=== PATIENT | female | born 1940 | race Two or more races ===

== ENCOUNTER 2018-11-08 15:48 | Inpatient (IN) | payer OTHER, MEDICAID ==
[~2018-11-08] VITALS: Ht 165.1 cm; Wt 64.4 kg
[~2018-11-08 15:48] MED LIST: ABILIFY10 MG ORAL; ASPIR 8181 MG ORAL; ATORVASTATIN CA20 MG ORAL; COMPAZINE10 MG ORAL; DOC-Q-LACE100 M1 ORAL; FLUOXETINE HCL40 MG ORAL; LORAZEPAM2 MG ORAL; METOPROLOL TART25 MG ORAL; NAPROXEN500 M2 ORAL; OMEPRAZOLE40 M1 ORAL
[2018-11-08] MEDS ORDERED: LORAZEPAM0.5 MG ORAL (15:54)
[2018-11-08] MEDS ORDERED: LIPITOR80 MG ORAL (15:54)
[2018-11-08] MEDS ORDERED: LORazepam Inj 2mg/ml 1ml IV ONE (16:00)
[2018-11-08 16:04] VITALS: BP 132/64
--- NOTE | 2018-11-08 16:10 | NUR ---
ED Nurse Note: pt brought in to ER by ambulance from home due to abdominal pain / which started this morning. pt aao x4 and ambulatory with assist. skin clean and intact. pt in gown and on monitoring and evaluation advisor. per pt, she eats 2 raw eggs and have heartburn everytime. she ate 2 raw eggs again today and abdominal pain gets worse. pt denied diarrhea but reported x1 vomit at home.
[2018-11-08 16:23] LABS: BASOPHILS % (AUTO) 2.3 % (0.0-2.0); EOSINOPHILS % (AUTO) 2.1 % (0.0-3.0); HEMATOCRIT 38.6 % (37.0-47.0); HEMOGLOBIN 12.4 G/DL (12.0-16.0); LYMPHOCYTES % (AUTO) 19.2 % (20.0-45.0); MEAN CORPUSCULAR VOLUME 76 FL (80-99); MONOCYTES % (AUTO) 7.1 % (1.0-10.0); NEUTROPHILS % (AUTO) 69.3 % (45.0-75.0); PLATELET COUNT 357 K/UL (150-450); RED CELL DISTRIBUTION WIDTH 18.6 % (11.6-14.8); WHITE BLOOD COUNT 16.5 K/UL (4.8-10.8)
--- NOTE | 2018-11-08 16:30 | Emergency Room Report ---
History of Present Illness General Chief Complaint: Abdominal Pain Source: Patient, EMS Present Illness HPI Patient presents with complaints of chest pain and shortness of breath Patient reports that she was recently at [facility] Since discharge home has been feeling short of breath and midsternal chest pain patient also associated mid epigastric pain Denies any vomiting or diarrhea denies any change with position she does feel more short of breath with any exertion Allergies: Coded Allergies: CODEINE (Unverified Allergy, Unknown, 07/22/15) MORPHINE (Unverified Allergy, Unknown, 07/22/15) Patient History Past Medical History: see triage record Pertinent Family History: none Now: No Reviewed Nursing Documentation: PMH: Agreed; PSxH: Agreed Nursing Documentation-PMH Past Medical History: No History, Except For Hx Cardiac Problems: Yes - HEART ATTACK 2017 Hx Hypertension: Yes Hx Diabetes: Yes Hx Cancer: No Hx Gastrointestinal Problems: Yes - Gastritis Hx Seizures: Yes - Childhood Review of Systems All Other Systems: negative except mentioned in HPI Physical Exam Vital Signs Date Time Temp Pulse Resp B/P (MAP) Pulse Ox O2 Delivery O2 Flow Rate FiO2 11/08/18 15:46 99.0 113 20 128/70 (89) 97 Room Air Sp02 EP Interpretation: reviewed, normal General Appearance: mild distress - Appears uncomfortable Head: normocephalic, atraumatic Eyes: bilateral eye PERRL, bilateral eye EOMI ENT: hearing grossly normal, normal pharynx, TMs + canals normal, uvula midline Neck: full range of motion, supple, no meningismus, no bony tend Respiratory: lungs clear, normal breath sounds, no rhonchi, no respiratory distress, no retraction, no accessory muscle use Cardiovascular #1: normal peripheral pulses, regular rate, rhythm, no edema, no gallop, no JVD, no murmur Gastrointestinal: normal bowel sounds, non tender, soft, no mass, no organomegaly, non-distended, no guarding, no hernia, no pulsatile mass, no rebound Genitourinary: no CVA tenderness Musculoskeletal: normal inspection Neurologic: oriented x3, responsive, gun fertilizer III-XII nml as tested, motor strength/ tone normal, sensory intact Psychiatric: mood/affect normal Skin: normal color, no rash, warm/dry, palpation normal Lymphatic: normal inspection, no adenopathy Medical Decision Making Diagnostic Impression: Primary Impression: ACS (acute coronary syndrome) Additional Impression: CHF (congestive heart failure) ER Course Patient is a fairly complex patient with multiple differential to consideration including but not limited to cardiac cardiopulmonary and vascular emergencies Patient appears to be showing some signs of CHF as well given some of the discomfort Patient has fairly extensive work-up initiated imaging shows congestion as well Patient requiring further inpatient care Labs Test 11/08/18 16:00 11/08/18 16:30 11/08/18 23:00 11/09/18 00:30 White Blood Count 16.5 K/UL (4.8-10.8) 13.1 K/UL (4.8-10.8) Red Blood Count 5.10 M/UL (4.20-5.40) 4.74 M/UL (4.20-5.40) Hemoglobin 12.4 G/DL (12.0-16.0) 11.7 G/DL (12.0-16.0) Hematocrit 38.6 % (37.0-47.0) 35.7 % (37.0-47.0) Mean Corpuscular Volume 76 FL (80-99) 75 FL (80-99) Mean Corpuscular Hemoglobin 24.2 PG (27.0-31.0) 24.6 PG (27.0-31.0) Mean Corpuscular Hemoglobin Concent 32.1 G/DL (32.0-36.0) 32.7 G/DL (32.0-36.0) Red Cell Distribution Width 18.6 % (11.6-14.8) 19.1 % (11.6-14.8) Platelet Count 357 K/UL (150-450) 314 K/UL (150-450) Mean Platelet Volume 6.1 FL (6.5-10.1) 5.7 FL (6.5-10.1) Neutrophils (%) (Auto) 69.3 % (45.0-75.0) 59.4 % (45.0-75.0) Lymphocytes (%) (Auto) 19.2 % (20.0-45.0) 26.2 % (20.0-45.0) Monocytes (%) (Auto) 7.1 % (1.0-10.0) 7.5 % (1.0-10.0) Eosinophils (%) (Auto) 2.1 % (0.0-3.0) 4.4 % (0.0-3.0) Basophils (%) (Auto) 2.3 % (0.0-2.0) 2.6 % (0.0-2.0) Sodium Level 136 MMOL/L (136-145) Potassium Level 4.0 MMOL/L (3.5-5.1) Chloride Level 99 MMOL/L (98-107) Carbon Dioxide Level 22 MMOL/L (21-32) Anion Gap 15 mmol/L (5-15) Blood Urea Nitrogen 13 mg/dL (7-18) Creatinine 0.9 MG/DL (0.55-1.30) Estimat Glomerular Filtration Rate mL/min (>60) Glucose Level 115 MG/DL (74-106) Calcium Level 9.5 MG/DL (8.5-10.1) Total Bilirubin 0.2 MG/DL (0.2-1.0) Aspartate Amino Transf (AST/SGOT) 21 U/L (15-37) Alanine Aminotransferase (ALT/SGPT) 26 U/L (12-78) Alkaline Phosphatase 79 U/L (46-116) Total Creatine Kinase 33 U/L (26-308) Creatine Kinase MB 1.0 NG/ML (0.0-3.6) Creatine Kinase MB Relative Index 3.0 Troponin I 0.000 ng/mL (0.000-0.056) 0.001 ng/mL (0.000-0.056) Pro-B-Type Natriuretic Peptide 1310 pg/mL (0-125) Total Protein 8.0 G/DL (6.4-8.2) Albumin 4.5 G/DL (3.4-5.0) Globulin 3.5 g/dL Albumin/Globulin Ratio 1.3 (1.0-2.7) Lipase 159 U/L (73-393) Urine Opiates Screen Negative (NEGATIVE) Urine Barbiturates Screen Negative (NEGATIVE) Phencyclidine (PCP) Screen Negative (NEGATIVE) Urine Amphetamines Screen Negative (NEGATIVE) Urine Benzodiazepines Screen Negative (NEGATIVE) Urine Cocaine Screen Negative (NEGATIVE) Urine Marijuana (THC) Screen Negative (NEGATIVE) Urine Color Yellow Urine Appearance Clear Urine pH 5 (4.5-8.0) Urine Specific Fosters 1.010 (1.005-1.035) Urine Protein 1+ (NEGATIVE) Urine Glucose (UA) Negative (NEGATIVE) Urine Ketones Negative (NEGATIVE) Urine Blood 1+ (NEGATIVE) Urine Nitrite Negative (NEGATIVE) Urine Bilirubin Negative (NEGATIVE) Urine Urobilinogen Normal MG/DL (0.0-1.0) Urine Leukocyte Esterase 1+ (NEGATIVE) Urine RBC 0-2 /HPF (0 - 2) Urine WBC 0-2 /HPF (0 - 2) Urine Squamous Epithelial Cells Few /LPF (NONE/OCC) Urine Bacteria Occasional /HPF (NONE) Lactic Acid Level 1.30 mmol/L (0.4-2.0) Test 11/09/18 08:35 11/09/18 15:05 11/10/18 07:40 Sodium Level 139 MMOL/L (136-145) 141 MMOL/L (136-145) Potassium Level 4.3 MMOL/L (3.5-5.1) 3.8 MMOL/L (3.5-5.1) Chloride Level 103 MMOL/L (98-107) 107 MMOL/L (98-107) Carbon Dioxide Level 26 MMOL/L (21-32) 23 MMOL/L (21-32) Anion Gap 10 mmol/L (5-15) 11 mmol/L (5-15) Blood Urea Nitrogen 14 mg/dL (7-18) 11 mg/dL (7-18) Creatinine 1.1 MG/DL (0.55-1.30) 1.0 MG/DL (0.55-1.30) Estimat Glomerular Filtration Rate mL/min (>60) mL/min (>60) Glucose Level 125 MG/DL (74-106) 132 MG/DL (74-106) Calcium Level 9.5 MG/DL (8.5-10.1) 8.8 MG/DL (8.5-10.1) Total Bilirubin 0.5 MG/DL (0.2-1.0) Aspartate Amino Transf (AST/SGOT) 25 U/L (15-37) Alanine Aminotransferase (ALT/SGPT) 32 U/L (12-78) Alkaline Phosphatase 88 U/L (46-116) Troponin I 0.000 ng/mL (0.000-0.056) Total Protein 8.0 G/DL (6.4-8.2) Albumin 4.1 G/DL (3.4-5.0) Globulin 3.9 g/dL Albumin/Globulin Ratio 1.1 (1.0-2.7) Stool Occult Blood Negative (NEGATIVE) White Blood Count 9.7 K/UL (4.8-10.8) Red Blood Count 4.81 M/UL (4.20-5.40) Hemoglobin 12.0 G/DL (12.0-16.0) Hematocrit 37.2 % (37.0-47.0) Mean Corpuscular Volume 77 FL (80-99) Mean Corpuscular Hemoglobin 24.9 PG (27.0-31.0) Mean Corpuscular Hemoglobin Concent 32.3 G/DL (32.0-36.0) Red Cell Distribution Width 19.4 % (11.6-14.8) Platelet Count 336 K/UL (150-450) Mean Platelet Volume 6.3 FL (6.5-10.1) Neutrophils (%) (Auto) 62.0 % (45.0-75.0) Lymphocytes (%) (Auto) 22.9 % (20.0-45.0) Monocytes (%) (Auto) 7.9 % (1.0-10.0) Eosinophils (%) (Auto) 5.4 % (0.0-3.0) Basophils (%) (Auto) 1.8 % (0.0-2.0) Prothrombin Time 10.5 SEC (9.30-11.50) Prothromb Time International Ratio 1.0 (0.9-1.1) Activated Partial Thromboplast Time 32 SEC (23-33) Phosphorus Level 4.6 MG/DL (2.5-4.9) Magnesium Level 2.2 MG/DL (1.8-2.4) EKG Diagnostic Results Rate: normal Rhythm: NSR ST Segments: other - Nonspecific ST T wave changes Rhythm Strip Diag. Results EP Interpretation: yes Rate: 66 Rhythm: NSR, no PVC's, no ectopy Chest X-Ray Diagnostic Results Chest X-Ray Diagnostic Results : Chest X-Ray Ordered: Yes # of Views/Limited/Complete: 1 View Indication: Chest Pain EP Interpretation: Yes Interpretation: no consolidation, no effusion, no pneumothorax, other - cardiomegaly mild congestion Impression: Other - mild chf Electronically Signed by: Don Nino DO Last Vital Signs Date Time Temp Pulse Resp B/P (MAP) Pulse Ox O2 Delivery O2 Flow Rate FiO2 11/08/18 16:04 108 21 Room Air 11/08/18 16:04 98.6 132/64 97 Status: improved Disposition: ADMITTED INPATIENT Condition: Serious Don Nino DO Nov 08, 2018 16:30
[2018-11-08 16:38] LABS: ANION GAP 15 mmol/L (5-15); BLOOD UREA NITROGEN 13 mg/dL (7-18); CALCIUM 9.5 MG/DL (8.5-10.1); CARBON DIOXIDE 22 MMOL/L (21-32); CHLORIDE 99 MMOL/L (98-107); CREATININE 0.9 MG/DL (0.55-1.30); SODIUM 136 MMOL/L (136-145)
--- NOTE | 2018-11-08 16:50 | NUR ---
ED Nurse Note: pt sleeping in bed without s/s of distress.
[2018-11-08 16:53] LABS: ALANINE AMINOTRANSFERASE 26 U/L (12-78); ALBUMIN 4.5 G/DL (3.4-5.0); ALBUMIN/GLOBULIN RATIO 1.3 (1.0-2.7); ALKALINE PHOSPHATASE 79 U/L (46-116); ASPARTATE AMINO TRANSFERASE 21 U/L (15-37); BILIRUBIN,TOTAL 0.2 MG/DL (0.2-1.0); CREATINE KINASE 33 U/L (26-308)
[2018-11-08 17:05] VITALS: BP 126/61
--- NOTE | 2018-11-08 17:15 | Diagnostic Imaging Report ---
Indication: Chest pain Comparison: None A single view chest radiograph was obtained. Findings: Calcified granuloma in the right upper lobe noted. The heart is borderline enlarged. Aorta is calcified and ectatic. Sternotomy noted. Bones are osteopenic. IMPRESSION: No acute findings
[2018-11-08 17:24] LABS: APPEARANCE,URINE CLEAR; BILIRUBIN, URINE NEGATIVE (NEGATIVE); GLUCOSE, URINE (UA) NEGATIVE (NEGATIVE); KETONES,URINE NEGATIVE (NEGATIVE); LEUKOCYTE ESTERASE ,URINE 1+ (NEGATIVE); NITRITE,URINE NEGATIVE (NEGATIVE); PH,URINE 5 (4.5-8.0); PROTEIN,URINE 1+ (NEGATIVE); UROBILINOGEN,URINE NORMAL MG/DL (0.0-1.0)
--- NOTE | 2018-11-08 17:24 | NUR ---
ED Nurse Note: pt went down to CT in stable condition.
[2018-11-08 17:28] LABS: COLOR,URINE YELLOW
--- NOTE | 2018-11-08 18:29 | NUR ---
ED Nurse Note: report given to HOLGER Reagan. room will be ready at 1840.
--- NOTE | 2018-11-08 18:50 | NUR ---
ED Nurse Note: pt left unit with 1 RN and 1 operating room surgical technician in stable condition.
--- NOTE | 2018-11-08 18:54 | NUR ---
NURSE NOTES: Received patient and report from Art WREN. Patient was transported via gurney to room 209-2. siebel architect in place. Vital signs taken and stable. Will endorse full admission to the [facility].
--- NOTE | 2018-11-08 19:38 | NUR ---
HAND-OFF: Report given to Rosie WREN.Endorsed full admission to the [facility].
--- NOTE | 2018-11-08 19:40 | NUR ---
NURSE NOTES: patient received. patient in no acute distress at this time. patient complains of no pain at this time. patient awake alert and oriented x4. IV intact patent and asymptomatic. patient ambulates with assist. bed in lowest position and locked. call light within reach.i will continue to monitor. bed alarm on.
[2018-11-08] MEDS ORDERED: Prochlorperazine 10mg tab ORAL PRN (20:13)
[2018-11-08] MEDS ORDERED: Atorvastatin 80mg tab ORAL SCH (21:00)
[2018-11-08] MEDS: Metoprolol 25mg tab ORAL SCH (21:32)
[2018-11-08] MEDS: Atorvastatin 20mg tab ORAL SCH (21:32)
[2018-11-08] MEDS ORDERED: Isovue-300 100ml vial INJ PRN (22:15)
[2018-11-08 23:13] LABS: BASOPHILS % (AUTO) 2.6 % (0.0-2.0); EOSINOPHILS % (AUTO) 4.4 % (0.0-3.0); HEMATOCRIT 35.7 % (37.0-47.0); HEMOGLOBIN 11.7 G/DL (12.0-16.0); LYMPHOCYTES % (AUTO) 26.2 % (20.0-45.0); MEAN CORPUSCULAR VOLUME 75 FL (80-99); MONOCYTES % (AUTO) 7.5 % (1.0-10.0); NEUTROPHILS % (AUTO) 59.4 % (45.0-75.0); PLATELET COUNT 314 K/UL (150-450); RED BLOOD COUNT 4.74 M/UL (4.20-5.40); RED CELL DISTRIBUTION WIDTH 19.1 % (11.6-14.8); WHITE BLOOD COUNT 13.1 K/UL (4.8-10.8)
[2018-11-08] MEDS: Piperacillin/Tazobactam 3.375 GM in NS 110 ML IVPB SCH (23:31)
--- NOTE | 2018-11-09 03:15 | Consultation ---
DATE OF CONSULTATION: 11/08/2018 CARDIOLOGY CONSULTATION CONSULTING PHYSICIAN: Az Campa M.D. REQUESTING PHYSICIAN: Kenneth Rivera M.D. REASON FOR CONSULTATION: Chest pain. HISTORY OF PRESENT ILLNESS: This is a 77-year-old female. She presented to the emergency room apparently complaining of chest pain and shortness of breath, but now reports to me only abdominal discomfort and some nausea. She has not had a bowel movement for several days either. She denies any nausea or vomiting, but has not been eating as much as she usually does. She was seen in the emergency room and admitted for further management. PAST MEDICAL HISTORY: Obtained predominantly from the old records and includes coronary disease with history of myocardial infarction, hypertension, type 2 diabetes mellitus, history of gastritis, diverticulosis, depression with psychosis, status post cholecystectomy, hiatal hernia, prior hysterectomy, prior appendectomy possible prior right oophorectomy, atherosclerosis, and degenerative disc disease with lumbosacral spondylosis. MEDICATIONS: Prior to admission, reviewed and reconciled. ALLERGIES: Codeine and morphine. FAMILY HISTORY: Noncontributory. SOCIAL HISTORY: She denies smoking, alcohol, or substance abuse. REVIEW OF SYSTEMS: A 10-point review of systems was performed. All systems negative other than noted above. PHYSICAL EXAMINATION: GENERAL: She is moderately obese, in moderate distress due to abdominal pain. VITAL SIGNS: Blood pressure 110/59, pulse 96, respirations 17, and afebrile. HEENT: Conjunctivae pink. Oropharynx clear. Mucous membranes dry. NECK: Jugular venous pressure normal. LUNGS: Clear. CARDIAC: Regular rhythm and rate. Normal S1, S2 with no murmur. ABDOMEN: Distended, tender diffusely, but with no guarding or rebound, but is mostly in the mid epigastric region. EXTREMITIES: No clubbing, cyanosis, or edema. LABORATORY DATA: White count 16 and hemoglobin 12. Potassium 4. BUN 13, creatinine 0.9, and bicarb 22. Troponin negative. Pro-natriuretic peptide 1300. Glucose 115. Albumin 4.5. Lipase normal. IMPRESSION: 1. Abdominal pain. 2. Hypertensive heart disease. 3. Chronic diastolic congestive heart failure. No signs of acute coronary insufficiency. 4. History of diverticulosis and possibility of diverticulitis. 5. Status post cholecystectomy. Cannot exclude acute hepatobiliary process. PLAN: 1. IV fluids. 2. CAT scan of the abdomen. 3. Empiric antimicrobials. 4. Recheck CBC and lactic acid level. 5. Discontinue diuretics for now. Az Campa M.D. DR: JANET JOB#: [id number] CC:
--- NOTE | 2018-11-09 05:50 | NUR ---
NURSE NOTES: patient complains of a lot of pain in her abdomen area. Dr. Campa was called. waiting for response. will continue to monitor.
[2018-11-09] MEDS: Piperacillin/Tazobactam 3.375 GM in NS 110 ML IVPB SCH ×3 (06:00→17:40)
--- NOTE | 2018-11-09 06:00 | NUR ---
NURSE NOTES: patient requested to keep getting up. wanted IV out. refused to have IV in. The Zosyn which was due 0600 could not be given on time because the previous dose was still running. charge nurse informed. spoke to cheri who said they would inform their pharmacist. just called pharmacy and spoke to Jigna, she told me to note everything and that the pharmacist would take care of it. I informed day shift nurse HOLGER Fernandes. Zosyn currently running.
--- NOTE | 2018-11-09 07:27 | NUR ---
NURSE NOTES: Received patient from Rosie WREN in bed resting, complain of abdominal pain 3/. Iv is intact, running zosyn at this time. Bed is in lowest position, with bedside rails up x2. Brakes engaged for safety. Call light is within reach. Will continue with the plan of care.
--- NOTE | 2018-11-09 07:45 | NUR ---
HAND-OFF: Report given to HOLGER Fernandes
[2018-11-09 08:00] VITALS: BP 124/61
[2018-11-09] MEDS: Docusate 100mg cap ORAL SCH ×3 (08:17→17:40)
[2018-11-09] MEDS: Metoprolol 25mg tab ORAL SCH ×2 (08:17→21:27)
[2018-11-09] MEDS ORDERED: ARIPiprazole 10mg tab ORAL SCH (09:00)
[2018-11-09] MEDS ORDERED: Aspirin EC 81mg tab ORAL SCH (09:00)
[2018-11-09 09:03] LABS: ALANINE AMINOTRANSFERASE 32 U/L (12-78); ALBUMIN 4.1 G/DL (3.4-5.0); ALBUMIN/GLOBULIN RATIO 1.1 (1.0-2.7); ALKALINE PHOSPHATASE 88 U/L (46-116); ANION GAP 10 mmol/L (5-15); ASPARTATE AMINO TRANSFERASE 25 U/L (15-37); BILIRUBIN,TOTAL 0.5 MG/DL (0.2-1.0); BLOOD UREA NITROGEN 14 mg/dL (7-18); CALCIUM 9.5 MG/DL (8.5-10.1); CARBON DIOXIDE 26 MMOL/L (21-32); CHLORIDE 103 MMOL/L (98-107); CREATININE 1.1 MG/DL (0.55-1.30); POTASSIUM 4.3 MMOL/L (3.5-5.1); SODIUM 139 MMOL/L (136-145)
--- NOTE | 2018-11-09 09:42 | History & Physical ---
History and Physical History & Physicial REASON FOR ADMISSION: Chest pain. HISTORY OF PRESENT ILLNESS: This is a 77-year-old female. She presented to the emergency room apparently complaining of chest pain and shortness of breath. She has not had a bowel movement for several days either. She denies any nausea or vomiting, but has not been eating as much as she usually does. She was seen in the emergency room and admitted for further management. PAST MEDICAL HISTORY: Coronary disease with history of myocardial infarction, hypertension, type 2 diabetes mellitus, history of gastritis, diverticulosis, depression with psychosis, status post cholecystectomy, hiatal hernia, prior hysterectomy, prior appendectomy possible prior right oophorectomy, atherosclerosis, and degenerative disc disease with lumbosacral spondylosis. MEDICATIONS: Prior to admission, reviewed and reconciled. ALLERGIES: Codeine and morphine. FAMILY HISTORY: Noncontributory. SOCIAL HISTORY: She denies smoking, alcohol, or substance abuse. REVIEW OF SYSTEMS: A 10-point review of systems was performed. All systems negative other than noted above. PHYSICAL EXAMINATION: GENERAL: She is moderately obese, in moderate distress due to abdominal pain. VITAL SIGNS: Blood pressure 110/59, pulse 96, respirations 17, and afebrile. HEENT: Conjunctivae pink. Oropharynx clear. Mucous membranes dry. NECK: Jugular venous pressure normal. LUNGS: Clear. CARDIAC: Regular rhythm and rate. Normal S1, S2 with no murmur. ABDOMEN: Distended, tender diffusely, but with no guarding or rebound, but is mostly in the mid epigastric region. EXTREMITIES: No clubbing, cyanosis, or edema. LABORATORY DATA: White count 16 and hemoglobin 12. Potassium 4. BUN 13, creatinine 0.9, and bicarb 22. Troponin negative. Pro-natriuretic peptide 1300. Glucose 115. Albumin 4.5. Lipase normal. IMPRESSION: 1. Abdominal pain. 2. Hypertensive heart disease. 3. Chronic diastolic congestive heart failure. No signs of acute coronary insufficiency. 4. History of diverticulosis and possibility of diverticulitis. 5. Status post cholecystectomy. Cannot exclude acute hepatobiliary process. PLAN: 1. IV fluids. 2. CAT scan of the abdomen. 3. Empiric antimicrobials. 4. Recheck CBC and lactic acid level. 5. Discontinue diuretics for now. 6. GI and cardiology eval Yessy Lopez Omar Syed MD Nov 09, 2018 09:42
--- NOTE | 2018-11-09 10:34 | GI Initial Consult Note ---
History of Present Illness General Date patient seen: Nov 09, 2018 Time patient seen: 10:26 Reason for Hospitalization: Abdominal Pain Referring physician: MACK Reason for Consultation: ABDOMINAL PAIN Present Illness HPI Patient presents with complaints of chest pain and shortness of breath Patient reports that she was recently at [facility] Since discharge home has been feeling short of breath and midsternal chest pain patient also associated mid epigastric pain GI consulted for abdominal pain. Patient was seen, awake alert and oriented x4 no apparent distress. Complain of severe abdominal pain accompanied with nausea and vomiting and diarrhea. Denies any recent travels. Abdomen is soft, nondistended, mild tenderness to palpation. States her last endoscopy and colonoscopy was approximately 4 years ago with insignificant findings. Labs reviewed; WBC 13.1, hemoglobin 11.7, no transaminitis, lipase levels within normal limits. Abdominal pelvis CT without contrast taken, pending final read. Home Meds Active Scripts Prochlorperazine (COMPAZINE*) 10 Mg Tablet, 10 MG ORAL Q6H PRN for Nausea & Vomiting, #20 TAB Prov:Geovani Álvarez MD 07/29/15 Aripiprazole* (ABILIFY*) 10 Mg Tablet, 10 MG ORAL DAILY, #30 TAB Prov:Geovani Álvarez MD 07/29/15 Reported Medications Lorazepam* (LORAZEPAM*) 0.5 Mg Tablet, ORAL, TAB 11/08/18 Atorvastatin (Lipitor) 80 Mg Tablet, ORAL BEDTIME, #30 TAB 0 Refills 11/08/18 Docusate Sodium (DOC-Q-LACE) 100 Mg Capsule, 100 MG ORAL THREE TIMES A DAY, #90 CAP 0 Refills 07/22/15 Omeprazole (OMEPRAZOLE) 40 Mg Capsule.dr, 40 MG ORAL DAILY, CAP 07/22/15 Metoprolol Tartrate* (METOPROLOL TARTRATE*) 25 Mg Tablet, 25 MG ORAL BID, TAB 07/22/15 Fluoxetine Hcl* (FLUOXETINE HCL*) 40 Mg Capsule, 40 MG ORAL DAILY, CAP 07/22/15 Lorazepam* (LORAZEPAM*) 2 Mg Tablet, 2 MG ORAL BEDTIME, TAB 07/22/15 Aspirin* (ASPIR 81*) 81 Mg Tablet.dr, 81 MG ORAL DAILY, TAB 07/22/15 Atorvastatin Calcium* (ATORVASTATIN CALCIUM*) 20 Mg Tablet, 20 MG ORAL BEDTIME, TAB 07/22/15 Med list reviewed/reconciled: Yes Allergies: Coded Allergies: CODEINE (Unverified Allergy, Unknown, 07/22/15) MORPHINE (Unverified Allergy, Unknown, 07/22/15) Patient History History Provided By: Patient, Medical Record PMH Narrative Past Medical History: see triage record Pertinent Family History: none Now: No Reviewed Nursing Documentation: PMH: Agreed; PSxH: Agreed Nursing Documentation-PMH Past Medical History: No History, Except For Hx Cardiac Problems: Yes - HEART ATTACK 2017 Hx Hypertension: Yes Hx Diabetes: Yes Hx Cancer: No Hx Gastrointestinal Problems: Yes - Gastritis Hx Seizures: Yes - Childhood Social History: Denies: smoking, alcohol use, drug use, other Review of Systems All Other Systems: negative except mentioned in HPI Physical Exam Vital Signs Date Time Temp Pulse Resp B/P (MAP) Pulse Ox O2 Delivery O2 Flow Rate FiO2 11/08/18 15:46 99.0 113 20 128/70 (89) 97 Room Air Sp02 EP Interpretation: reviewed, normal Labs Laboratory Tests Test 11/08/18 16:00 11/08/18 16:30 11/08/18 23:00 11/09/18 00:30 White Blood Count 16.5 K/UL (4.8-10.8) H 13.1 K/UL (4.8-10.8) H Red Blood Count 5.10 M/UL (4.20-5.40) 4.74 M/UL (4.20-5.40) Hemoglobin 12.4 G/DL (12.0-16.0) 11.7 G/DL (12.0-16.0) L Hematocrit 38.6 % (37.0-47.0) 35.7 % (37.0-47.0) L Mean Corpuscular Volume 76 FL (80-99) L 75 FL (80-99) L Mean Corpuscular Hemoglobin 24.2 PG (27.0-31.0) L 24.6 PG (27.0-31.0) L Mean Corpuscular Hemoglobin Concent 32.1 G/DL (32.0-36.0) 32.7 G/DL (32.0-36.0) Red Cell Distribution Width 18.6 % (11.6-14.8) H 19.1 % (11.6-14.8) H Platelet Count 357 K/UL (150-450) 314 K/UL (150-450) Mean Platelet Volume 6.1 FL (6.5-10.1) L 5.7 FL (6.5-10.1) L Neutrophils (%) (Auto) 69.3 % (45.0-75.0) 59.4 % (45.0-75.0) Lymphocytes (%) (Auto) 19.2 % (20.0-45.0) L 26.2 % (20.0-45.0) Monocytes (%) (Auto) 7.1 % (1.0-10.0) 7.5 % (1.0-10.0) Eosinophils (%) (Auto) 2.1 % (0.0-3.0) 4.4 % (0.0-3.0) H Basophils (%) (Auto) 2.3 % (0.0-2.0) H 2.6 % (0.0-2.0) H Sodium Level 136 MMOL/L (136-145) Potassium Level 4.0 MMOL/L (3.5-5.1) Chloride Level 99 MMOL/L (98-107) Carbon Dioxide Level 22 MMOL/L (21-32) Anion Gap 15 mmol/L (5-15) Blood Urea Nitrogen 13 mg/dL (7-18) Creatinine 0.9 MG/DL (0.55-1.30) Estimat Glomerular Filtration Rate mL/min (>60) Glucose Level 115 MG/DL (74-106) H Calcium Level 9.5 MG/DL (8.5-10.1) Total Bilirubin 0.2 MG/DL (0.2-1.0) Aspartate Amino Transf (AST/SGOT) 21 U/L (15-37) Alanine Aminotransferase (ALT/SGPT) 26 U/L (12-78) Alkaline Phosphatase 79 U/L (46-116) Total Creatine Kinase 33 U/L (26-308) Creatine Kinase MB 1.0 NG/ML (0.0-3.6) Creatine Kinase MB Relative Index 3.0 Troponin I 0.000 ng/mL (0.000-0.056) 0.001 ng/mL (0.000-0.056) Pro-B-Type Natriuretic Peptide 1310 pg/mL (0-125) H Total Protein 8.0 G/DL (6.4-8.2) Albumin 4.5 G/DL (3.4-5.0) Globulin 3.5 g/dL Albumin/Globulin Ratio 1.3 (1.0-2.7) Lipase 159 U/L (73-393) Urine Opiates Screen Negative (NEGATIVE) Urine Barbiturates Screen Negative (NEGATIVE) Phencyclidine (PCP) Screen Negative (NEGATIVE) Urine Amphetamines Screen Negative (NEGATIVE) Urine Benzodiazepines Screen Negative (NEGATIVE) Urine Cocaine Screen Negative (NEGATIVE) Urine Marijuana (THC) Screen Negative (NEGATIVE) Urine Color Yellow Urine Appearance Clear Urine pH 5 (4.5-8.0) Urine Specific [place] 1.010 (1.005-1.035) Urine Protein 1+ (NEGATIVE) H Urine Glucose (UA) Negative (NEGATIVE) Urine Ketones Negative (NEGATIVE) Urine Blood 1+ (NEGATIVE) H Urine Nitrite Negative (NEGATIVE) Urine Bilirubin Negative (NEGATIVE) Urine Urobilinogen Normal MG/DL (0.0-1.0) Urine Leukocyte Esterase 1+ (NEGATIVE) H Urine RBC 0-2 /HPF (0 - 2) Urine WBC 0-2 /HPF (0 - 2) Urine Squamous Epithelial Cells Few /LPF (NONE/OCC) Urine Bacteria Occasional /HPF (NONE) Lactic Acid Level 1.30 mmol/L (0.4-2.0) Test 11/09/18 08:35 Sodium Level 139 MMOL/L (136-145) Potassium Level 4.3 MMOL/L (3.5-5.1) Chloride Level 103 MMOL/L (98-107) Carbon Dioxide Level 26 MMOL/L (21-32) Anion Gap 10 mmol/L (5-15) Blood Urea Nitrogen 14 mg/dL (7-18) Creatinine 1.1 MG/DL (0.55-1.30) Estimat Glomerular Filtration Rate mL/min (>60) Glucose Level 125 MG/DL (74-106) H Calcium Level 9.5 MG/DL (8.5-10.1) Total Bilirubin 0.5 MG/DL (0.2-1.0) Aspartate Amino Transf (AST/SGOT) 25 U/L (15-37) Alanine Aminotransferase (ALT/SGPT) 32 U/L (12-78) Alkaline Phosphatase 88 U/L (46-116) Troponin I 0.000 ng/mL (0.000-0.056) Total Protein 8.0 G/DL (6.4-8.2) Albumin 4.1 G/DL (3.4-5.0) Globulin 3.9 g/dL Albumin/Globulin Ratio 1.1 (1.0-2.7) General Appearance: well appearing, no apparent distress, alert Head: normocephalic EENT: PERRL/EOMI, normal ENT inspection Neck: supple Respiratory: normal breath sounds, no respiratory distress Cardiovascular: normal rate Gastrointestinal: normal inspection, non tender, soft, normal bowel sounds, non -distended Rectal: deferred Genitourinary: no CVA tenderness Musculoskeletal: normal inspection, back normal Neurologic: normal inspection, alert, oriented x3, responsive Psychiatric: normal inspection, judgement/insight normal, memory normal Skin: normal inspection, normal color, no rash, warm/dry, palpation normal, well hydrated Lymphatic: normal inspection, no adenopathy Current Medications Current Medications Medications (Trade) Dose Ordered Sig/Tiffani Route PRN Reason Start Time Stop Time Status Last Admin Dose Admin Acetaminophen (Tylenol) 650 mg Q6H PRN ORAL pain 11/09/18 06:15 12/09/18 06:14 11/09/18 06:12 Aripiprazole (Abilify) 10 mg DAILY ORAL 11/09/18 09:00 12/09/18 08:59 11/09/18 08:16 Aspirin (Ecotrin) 81 mg DAILY ORAL 11/09/18 09:00 12/09/18 08:59 11/09/18 08:15 Atorvastatin Calcium (Lipitor) 20 mg BEDTIME ORAL 11/08/18 21:00 12/08/18 20:59 11/08/18 21:32 Docusate Sodium (Colace) 100 mg THREE TIMES A DAY ORAL 11/09/18 09:00 12/09/18 08:59 11/09/18 08:17 Famotidine (Pepcid I.v.) 20 mg Q12HR IVP 11/08/18 22:45 12/08/18 22:44 11/09/18 09:48 Fluoxetine HCl (PROzac) 40 mg DAILY ORAL 11/09/18 09:00 12/09/18 08:59 11/09/18 08:15 Metoprolol Tartrate (Lopressor) 25 mg Q12HR ORAL 11/08/18 21:00 12/08/18 20:59 11/09/18 08:17 Piperacillin Sod/ Tazobactam Sod 3.375 gm/Sodium Chloride 110 ml @ 27.5 mls/hr Q8H IVPB 11/09/18 11:00 11/16/18 10:59 Sodium Chloride 1,000 ml @ 100 mls/hr Q10H IV 11/08/18 22:15 12/08/18 22:14 11/08/18 23:11 GI: Plan Problems: (1) Diverticulosis of colon (2) Nausea & vomiting (3) Elevated CEA (4) Anemia (5) Constipation (6) Abdominal pain (7) Gastroenteritis Plan Endoscopy and colonoscopy in 2015 SUMMARY OF FINDINGS: 1. Hiatal hernia. 2. Gastritis, status post biopsy. 3. Incomplete colonoscopy examination, only flexible sigmoidoscopy was performed. Elevated CEA Abdominal pelvis CT without contrast taken, pending final read Maintain clear liquid diet for today, will consider for colonoscopy tomorrow. Follow-up CT Stool studies, C. difficile to rule out infectious diarrhea IV and p.o. hydration plus electrolyte correction H2B PRN transfusions Zofran as needed Follow labs Discussed with Dr. John. Thank you for this patient referral, we will follow. Sunshine Araiza NP Nov 09, 2018 10:34
--- NOTE | 2018-11-09 11:30 | Diagnostic Imaging Report ---
Indication: Abdominal pain Technique: Spiral acquisitions obtained through the abdomen and pelvis. No oral contrast utilized, per emergency room physician request No IV contrast utilized, emergency room physician request. Multiplanar reconstructions were generated. Total dose length product 747.63 mGycm. CTDIvol(s) 15.47 mGy. Dose reduction achieved using automated exposure control Comparison: 07/22/2015 Findings: The appendix is not visualized, but no findings to suggest acute appendicitis are evident. Moderate retained stool is seen in the proximal colon. There are colonic diverticula. No evidence of diverticulitis. No small bowel distention. No free or loculated intraperitoneal gas or fluid. Small hiatal hernia is again demonstrated. Lack of IV contrast limits assessment of the solid organs. The liver is grossly unremarkable except for a very faint calcification in segment 7. The gallbladder is surgically absent. No biliary ductal dilatation. Grossly normal pancreas, spleen, adrenals, kidneys. There is a right upper pole renal capsular calcification. There is a nonobstructive 2 mm calculus in the left upper pole collecting system. No other calyceal or ureteral calculi, hydronephrosis, or hydroureter demonstrated. The uterus is not visualized, presumably surgically absent. Included lung bases demonstrate linear scarring or atelectasis. The bones demonstrate degenerative spondylosis changes. There is anterior offset of L4 on L5. This is a new finding. Degenerative changes of L4-5 and L5-S1 have advanced considerably since previous exam. Circumferential annular bulge at L5-S1 persists Impression: No acute abnormality Colonic diverticulosis. No evidence of diverticulitis 2 mm nonobstructing left upper pole intrarenal calyceal calculus Postsurgical changes as described, including prior hysterectomy, cholecystectomy Advanced lower lumbar degenerative changes, progressive since previous study Evidence of old granulomatous disease within the liver This agrees with the preliminary interpretation provided overnight by Dr. Mendoza, with minor variation The CT scanner at [facility] is accredited by the [employer] and the scans are performed using protocols designed to limit radiation exposure to as low as reasonably achievable to attain images of sufficient resolution adequate for diagnostic evaluation.
[2018-11-09 12:00] VITALS: BP 145/74
--- NOTE | 2018-11-09 15:27 | Cardiology Report ---
APPROVED REPORT EKG Measurement Heart [id number] Sinus tachycardia Nonspecific ST abnormality Abnormal ECG
[2018-11-09 16:00] VITALS: BP 132/71
[2018-11-09] MEDS ORDERED: Nulytely 4L ORAL SCH (16:00)
[2018-11-09] MEDS ORDERED: Bisacodyl EC 5mg tab ORAL SCH (16:00)
--- NOTE | 2018-11-09 16:06 | NUR ---
*-* INSURANCE *-* ALL CLINICALS HAVE BEEN FAXED TO: KIMIM: ANGELA(FOR TODAY) P- [phone] [phone]...REVIEW & CLINICALS Addendum: 11/10/18 at 0953 by SHANTELL ELIAS CM REF# [id number] KIMIM: NILDA P:[phone]
--- NOTE | 2018-11-09 16:20 | NUR ---
CASE MANAGEMENT:REVIEW 77YR OLD FEMALE BIBA FROM HOME CC: ABDOMINAL/CHEST PAIN. VOMITING SI: ACUTE CORONARY SYNDROME 98.9 113 20 128/70 97% ON RA WBC+16.5 IS: IV ATIVAN MYLANTA IV LASIX CT ABD/PELVIS CHEST XRAY : TO TELEMETRY IS: IV ZOSYN Q8HRS IVF@100/HR METOPROLOL PO Q12 IV PEPCID Q12 IV LASIX Q12 INTERQUAL CRITERIA MET
[2018-11-09] MEDS ORDERED: HYDROcodone/Acetamin 5/325 tab ORAL PRN (16:58)
--- NOTE | 2018-11-09 19:32 | NUR ---
HAND-OFF: Report given to Donald WREN.Endorsed plan of care.
--- NOTE | 2018-11-09 19:33 | NUR ---
NURSE NOTES: Received pt from HOLGER Yao. Pt is awake and resting in bed. IV site intact. Pt tolerating room air. Bed locked in lowest position, call light within reach. Will continue with plan of care.
[2018-11-09 20:00] VITALS: BP 135/65
[2018-11-09] MEDS: Atorvastatin 20mg tab ORAL SCH (21:23)
[2018-11-09] MEDS ORDERED: Fleet's Enema 133ml RECTAL SCH (23:00)
[2018-11-10] VITALS (9 sets, daily range): BP systolic 133–153; BP diastolic 52–88
--- NOTE | 2018-11-10 01:29 | NUR ---
HAND-OFF: Report given to HOLGER Berry. Pt is awake and resting in bed. IV site intact. telemetry monitor removed from pt. Belongings transferred with pt. Endorsed plan of care.
[2018-11-10] MEDS: Piperacillin/Tazobactam 3.375 GM in NS 110 ML IVPB SCH ×3 (02:54→18:06)
--- NOTE | 2018-11-10 03:00 | NUR ---
NURSE NOTES: Received patient from tele unit, awake and oriented x4, no complaints of pain. With IV access on the right AC g.20, no infiltration noted. Kept patient on NPO, instructed patient and verbalized understanding. Call lights within reach. Bed in lowest position and lock engaged. Bedside commode available. Will continue to monitor.
--- NOTE | 2018-11-10 03:45 | Progress Note ---
DATE: 11/09/2018 CARDIOLOGY PROGRESS NOTE SUBJECTIVE: The patient still has abdominal pain and nausea. No vomiting. No chest pain. Troponins are negative x3. Last night, a CAT scan of the abdomen was performed revealing no acute findings per report. Lactic acid level was normal. OBJECTIVE: VITAL SIGNS: Blood pressure 145/74, pulse 63, respirations 18, and afebrile. LUNGS: Clear. CARDIAC: Regular. ABDOMEN: Slightly distended and tender in the upper quadrant. No guarding. EXTREMITIES: Without edema. LABORATORY DATA: Reviewed. Chemistry panel within normal limits. IMPRESSION: 1. Abdominal pain. No sign of acute coronary syndrome. 2. History of diverticular disease. 3. Type 2 diabetes mellitus. 4. Coronary artery disease with history of myocardial infarction. 5. No clinical signs of acute coronary insufficiency at this time. 6. Hypertension with controlled blood pressure at this time. PLAN: 1. Hydration. 2. Review CT scan. 3. Empiric antimicrobials. 4. Hold diuretics. 5. Titrate antihypertensives. 6. No additional cardiovascular studies presently planned. Az Campa M.D. DR: JANET JOB#: [id number] CC:
--- NOTE | 2018-11-10 07:16 | NUR ---
HAND-OFF: Report given to HOLGER Zavala.
[2018-11-10 07:51] LABS: BASOPHILS % (AUTO) 1.8 % (0.0-2.0); EOSINOPHILS % (AUTO) 5.4 % (0.0-3.0); HEMATOCRIT 37.2 % (37.0-47.0); LYMPHOCYTES % (AUTO) 22.9 % (20.0-45.0); MEAN CORPUSCULAR VOLUME 77 FL (80-99); MONOCYTES % (AUTO) 7.9 % (1.0-10.0); PLATELET COUNT 336 K/UL (150-450); RED BLOOD COUNT 4.81 M/UL (4.20-5.40); RED CELL DISTRIBUTION WIDTH 19.4 % (11.6-14.8); WHITE BLOOD COUNT 9.7 K/UL (4.8-10.8)
--- NOTE | 2018-11-10 08:00 | NUR ---
Patient resting in bed. VSS , Room air, sat 98%. pt complained of abd pain 4/10. multiple episodes of BM, pt on bowel prep for colonoscopy am. NPO. call light within reach. will continue to monitor.
[2018-11-10 08:03] LABS: ANION GAP 11 mmol/L (5-15); BLOOD UREA NITROGEN 11 mg/dL (7-18); CALCIUM 8.8 MG/DL (8.5-10.1); CARBON DIOXIDE 23 MMOL/L (21-32); CHLORIDE 107 MMOL/L (98-107); PHOSPHORUS 4.6 MG/DL (2.5-4.9); POTASSIUM 3.8 MMOL/L (3.5-5.1); SODIUM 141 MMOL/L (136-145)
[2018-11-10] MEDS: HYDROcodone/Acetamin 5/325 tab ORAL PRN (08:49)
[2018-11-10] MEDS: Aspirin EC 81mg tab ORAL SCH (09:00)
[2018-11-10] MEDS: Metoprolol 25mg tab ORAL SCH ×3 (09:00→20:28)
[2018-11-10] MEDS: Docusate 100mg cap ORAL SCH ×3 (09:00→18:00)
[2018-11-10] MEDS: ARIPiprazole 10mg tab ORAL SCH (09:00)
--- NOTE | 2018-11-10 10:46 | Pulmonology Progress Note ---
Assessment/Plan Assessment/Plan 1. Abdominal pain. 2. Hypertensive heart disease. 3. Chronic diastolic congestive heart failure. No signs of acute coronary insufficiency. 4. History of diverticulosis and possibility of diverticulitis. 5. Status post cholecystectomy. Cannot exclude acute hepatobiliary process. PLAN: 1. IV fluids. 2. CAT scan of the abdomen reviewed 3. Empiric antimicrobials. 4. Recheck CBC and lactic acid level. 5. For colonoscopy 6. GI and cardiology eval noted Kenneth Rivera M.D. Subjective Interval Events: For colonoscopy Constitutional: Reports: no symptoms HEENT: Repors: no symptoms Respiratory: Reports: no symptoms Cardiovascular: Reports: no symptoms Gastrointestinal/Abdominal: Reports: no symptoms Genitourinary: Reports: no symptoms Allergies: Coded Allergies: CODEINE (Unverified Allergy, Unknown, 07/22/15) MORPHINE (Unverified Allergy, Unknown, 07/22/15) Objective Last 24 Hour Vital Signs Date Time Temp Pulse Resp B/P (MAP) Pulse Ox O2 Delivery O2 Flow Rate FiO2 11/10/18 10:11 78 133/68 11/10/18 09:19 98.8 11/10/18 09:00 Room Air 11/10/18 08:00 98.8 78 18 133/68 (89) 97 11/10/18 04:00 98.2 71 18 147/52 (83) 96 11/10/18 00:00 97.8 72 18 140/88 (105) 97 11/10/18 00:00 72 11/09/18 21:27 78 137/62 11/09/18 21:00 Room Air 11/09/18 20:00 90 11/09/18 20:00 97.2 90 18 135/65 (88) 97 11/09/18 16:00 65 11/09/18 16:00 98.6 66 18 132/71 (91) 99 11/09/18 12:00 63 11/09/18 12:00 97.0 68 18 145/74 (97) 99 Intake and Output 11/09/18 11/10/18 19:00 07:00 Intake Total 240 ml 82.5 ml Output Total 1 ml Balance 239 ml 82.5 ml Intake Oral 240 ml IV Total 82.5 ml Output Urine Total 1 ml # Voids 7 2 # Bowel Movements 2 4 General Appearance: no acute distress HEENT: normocephalic Respiratory/Chest: chest wall non-tender, lungs clear Cardiovascular: normal peripheral pulses Microbiology Date/Time Source Procedure Growth Status 11/09/18 15:05 Stool Clostridium difficile Toxin Assay - Final Complete Laboratory Tests 11/09/18 15:05: Stool Occult Blood Negative 11/10/18 07:40: White Blood Count 9.7, Red Blood Count 4.81, Hemoglobin 12.0, Hematocrit 37.2, Mean Corpuscular Volume 77L, Mean Corpuscular Hemoglobin 24.9L, Mean Corpuscular Hemoglobin Concent 32.3, Red Cell Distribution Width 19.4H, Platelet Count 336, Mean Platelet Volume 6.3L, Neutrophils (%) (Auto) 62.0, Lymphocytes (%) (Auto) 22.9, Monocytes (%) (Auto) 7.9, Eosinophils (%) (Auto) 5.4H, Basophils (%) (Auto) 1.8, Prothrombin Time 10.5, Prothromb Time International Ratio 1.0, Activated Partial Thromboplast Time 32, Sodium Level 141, Potassium Level 3.8, Chloride Level 107, Carbon Dioxide Level 23, Anion Gap 11, Blood Urea Nitrogen 11, Creatinine 1.0, Estimat Glomerular Filtration Rate , Glucose Level 132H, Calcium Level 8.8, Phosphorus Level 4.6, Magnesium Level 2.2 Current Medications Medications (Trade) Dose Ordered Sig/Tiffani Route PRN Reason Start Time Stop Time Status Last Admin Dose Admin Acetaminophen (Tylenol) 650 mg Q6H PRN ORAL pain 11/10/18 01:30 12/09/18 01:29 Acetaminophen/ Hydrocodone Bitart ([place] 5/325) 1 tab Q3H PRN ORAL Mild Pain (Pain Scale 1-3) 11/10/18 02:00 11/16/18 16:57 11/10/18 08:49 Aripiprazole (Abilify) 10 mg DAILY ORAL 11/10/18 09:00 12/09/18 08:59 Aspirin (Ecotrin) 81 mg DAILY ORAL 11/10/18 09:00 12/09/18 08:59 Atorvastatin Calcium (Lipitor) 20 mg BEDTIME ORAL 11/10/18 21:00 12/08/18 20:59 Docusate Sodium (Colace) 100 mg THREE TIMES A DAY ORAL 11/10/18 09:00 12/09/18 08:59 Famotidine (Pepcid) 20 mg BID ORAL 11/10/18 09:00 12/09/18 17:59 Fluoxetine HCl (PROzac) 40 mg DAILY ORAL 11/10/18 09:00 12/09/18 08:59 Metoprolol Tartrate (Lopressor) 25 mg Q12HR ORAL 11/10/18 09:00 12/08/18 20:59 11/10/18 10:11 Piperacillin Sod/ Tazobactam Sod 3.375 gm/Sodium Chloride 110 ml @ 27.5 mls/hr Q8H IVPB 11/10/18 03:00 11/16/18 10:59 11/10/18 10:39 Sodium Chloride 1,000 ml @ 100 mls/hr Q10H IV 11/10/18 01:15 12/08/18 22:14 11/10/18 02:24 Kenneth Rivera MD Nov 10, 2018 10:46
--- NOTE | 2018-11-10 11:57 | Anethesia Preoperative Eval ---
Anesthesia Pre-op PMH/ROS General Date of Evaluation: Nov 10, 2018 Anesthesiologist: Fortino ASA Score: ASA 3 Mallampati Score Class I : Soft palate, uvula, fauces, pillars visible Class II: Soft palate, uvula, fauces visible Class III: Soft palate, base of uvula visible Class IV: Only hard plate visible Mallampati Classification: Class III Surgeon: Alvaro Diagnosis: Abdominal pain Surgical Procedure: EGD and colonoscopy Anesthesia History: none Family History: no anesthesia problems Allergies: Coded Allergies: CODEINE (Unverified Allergy, Unknown, 07/22/15) MORPHINE (Unverified Allergy, Unknown, 07/22/15) Medications: see eMAR Patient NPO?: Yes NPO Date: Nov 09, 2018 NPO Time: 18:00 Past Medical History Cardiovascular: Reports: HTN, CAD - s/p CABG, other - HLD; Denies: SC, valve dz, arrhythmia Pulmonary: Denies: asthma, COPD, ISRA, other Gastrointestinal/Genitourinary: Denies: GERD, CRI, ESRD, other Neurologic/Psychiatric: Reports: depression/anxiety, other - seizures; Denies: dementia, CVA, TIA Endocrine: Reports: DM; Denies: hypothyroidism, steroids, other HEENT: Denies: cataract (L), cataract (R), glaucoma, [place] (L), [place] (R), other Hematology/Immune: Reports: anemia; Denies: DVT, bleeding disorder, other Musculoskeletal/Integumentary: Denies: OA, RA, DJD, DDD, edema, other PSxH Narrative: TAHBSO Anesthesia Pre-op Phys. Exam Physician Exam Last Vital Signs Date Time Temp Pulse Resp B/P (MAP) Pulse Ox O2 Delivery O2 Flow Rate FiO2 11/10/18 09:19 98.8 11/10/18 09:00 Room Air 11/10/18 09:00 78 133/68 11/10/18 08:00 18 97 Constitutional: NAD Cardiovascular: RRR Respiratory: CTA Airway Exam Mallampati Score: Class III Anesthesia Pre-op A/P Labs Hematology Test 11/10/18 07:40 White Blood Count 9.7 K/UL (4.8-10.8) Red Blood Count 4.81 M/UL (4.20-5.40) Hemoglobin 12.0 G/DL (12.0-16.0) Hematocrit 37.2 % (37.0-47.0) Mean Corpuscular Volume 77 FL (80-99) L Mean Corpuscular Hemoglobin 24.9 PG (27.0-31.0) L Mean Corpuscular Hemoglobin Concent 32.3 G/DL (32.0-36.0) Red Cell Distribution Width 19.4 % (11.6-14.8) H Platelet Count 336 K/UL (150-450) Mean Platelet Volume 6.3 FL (6.5-10.1) L Neutrophils (%) (Auto) 62.0 % (45.0-75.0) Lymphocytes (%) (Auto) 22.9 % (20.0-45.0) Monocytes (%) (Auto) 7.9 % (1.0-10.0) Eosinophils (%) (Auto) 5.4 % (0.0-3.0) H Basophils (%) (Auto) 1.8 % (0.0-2.0) Coagulation Test 11/10/18 07:40 Prothrombin Time 10.5 SEC (9.30-11.50) Prothromb Time International Ratio 1.0 (0.9-1.1) Activated Partial Thromboplast Time 32 SEC (23-33) Chemistry Test 11/10/18 07:40 Sodium Level 141 MMOL/L (136-145) Potassium Level 3.8 MMOL/L (3.5-5.1) Chloride Level 107 MMOL/L (98-107) Carbon Dioxide Level 23 MMOL/L (21-32) Anion Gap 11 mmol/L (5-15) Blood Urea Nitrogen 11 mg/dL (7-18) Creatinine 1.0 MG/DL (0.55-1.30) Estimat Glomerular Filtration Rate mL/min (>60) Glucose Level 132 MG/DL (74-106) H Calcium Level 8.8 MG/DL (8.5-10.1) Phosphorus Level 4.6 MG/DL (2.5-4.9) Magnesium Level 2.2 MG/DL (1.8-2.4) Studies Pre-op Studies: EKG - ST Risk Assessment & Plan Assessment: ASA III Plan: MAC Status Change Before Surgery: No Pre-Antibiotics Drug: N/A Alma Lerma MD Nov 10, 2018 11:57
[2018-11-10] MEDS ORDERED: LR 1000ml 1,000 ML IVLG SCH (11:58)
[2018-11-10] MEDS ORDERED: LR 1000ml ONE (12:00)
[2018-11-10] MEDS ORDERED: Propofol 200mg/20ml IV ONE (12:00)
[2018-11-10] MEDS ORDERED: Lidocaine 1% MPF 10mg/ml 5ml ONE (12:00)
[2018-11-10] MEDS ORDERED: DiphenhydrAMINE 50mg/ml Inj IVP PRN (12:00)
[2018-11-10] MEDS ORDERED: NS 500ML IVPB ONE (12:05)
--- NOTE | 2018-11-10 12:17 | Pre-Procedure Note/Attestation ---
Pre-Procedure Note/Attestation Complete Prior to Procedure Planned Procedure: not applicable Procedure Narrative: esophagogastroduodenoscopy and colonoscopy Indications for Procedure Pre-Operative Diagnosis: anemia Attestation I attest that I discussed the nature of the procedure; its benefits; risks and complications; and alternatives (and the risks and benefits of such alternatives ), prior to the procedure, with the patient (or the patient's legal petroleum products sales representative). I attest that, if there was a reasonable possibility of needing a blood transfusion, the patient (or the patient's legal petroleum products sales representative) was given the [facility] standardized written summary, pursuant to the Carlos A Kirby Blood Safety Act ([place] Health and Safety Code # 1645, as amended). I attest that I re-evaluated the patient just prior to the surgery and that there has been no change in the patient's H&P, except as documented below: Vasiliy John MD Nov 10, 2018 12:17
--- NOTE | 2018-11-10 12:42 | Endoscopy Procedure Note ---
Endoscopy Procedure Note General Indication for Procedure: anemia, abd pain Procedures Performed: EGD, colonoscopy Operative Findings/Diagnosis: diverticulosis, hemorhoids, gastritis Specimen: yes Pt Tolerated Procedure Well: Yes Estimated Blood Loss: none Anesthesia Anesthesiologist: perez Anesthesia: MAC Inserted Devices Implant(s) used?: No Quality Quality of Bowel Preparation: Good Did scope reach the cecum?: Yes Was there any complications?: No GI Core Measures 50 yrs or older w/o bx or poly: Not Applicable 10yrs. F/U recommended: Not Applicable Vasiliy John MD Nov 10, 2018 12:42
--- NOTE | 2018-11-10 12:42 | NUR ---
CASE MANAGEMENT: REVIEW 11/10/2018 SI:DIVERTICULITIS OF LARGE INTESTINE. T 98.8 HR 82 RR 18 B/P 136/65 SATS 97% ON RA GLU 132 IS:IVF @ 100 mL/HR LIPITOR PO QHS PEPCID PO BID ABILIFY PO QD ASA PO QD PROZAC PO QD LOPRESSOR PO Q12H ZOSYN IV Q8H MED/SURG STATUS DCP: PATIENT TO BE DISCHARGED TO HOME ONCE MEDICALLY CLEARED. PLAN OF CARE: Procedure Narrative: esophagogastroduodenoscopy and colonoscopy TODAY
--- NOTE | 2018-11-10 12:47 | NUR ---
INSURANCE REVIEWS FAXED TO [facility]: EBATRIZ....(FOR TODAY) P- [phone] F- [phone]
--- NOTE | 2018-11-10 12:50 | 48 Hour Post Anesthesia Eval ---
Post Anesthesia Evaluation Procedure: EGD and colonoscopy Date of Evaluation: Nov 10, 2018 Airway: patent Nausea: No Vomiting: No Pain Intensity: 0 Hydration Status: adequate Cardiopulmonary Status: at baseline Mental Status/LOC: patient returned to baseline Post-Anesthesia Complications: 0 Follow-up care needed: ready to discharge Alma Lerma MD Nov 10, 2018 12:50
--- NOTE | 2018-11-10 12:50 | Immediate Post-Op Evaluation ---
Immediate Post-Op Evalulation Immediate Post-Op Evalulation Procedure: EGD and colonoscopy Date of Evaluation: Nov 10, 2018 Time of Evaluation: 12:52 IV Fluids: 300 Blood Products: 0 Estimated Blood Loss: 0 Urinary Output: 0 Blood Pressure Systolic: 153 Blood Pressure Diastolic: 70 Pulse Rate: 62 Respiratory Rate: 16 O2 Sat by Pulse Oximetry: 100 Temperature (Fahrenheit): 97.6 Pain Score (1-10): 0 Nausea: No Vomiting: No Complications 0 Patient Status: awake, reacts, patent, none Hydration Status: adequate Drug: N/A Alma Lerma MD Nov 10, 2018 12:50
--- NOTE | 2018-11-10 17:30 | Procedure Note ---
DATE OF PROCEDURE: 11/10/2018 SURGEON: Vasiliy John M.D. PROCEDURE: Upper endoscopy with biopsy and colonoscopy. ANESTHESIA: Per Dr. Freitas. INSTRUMENT: Olympus adult flexible upper endoscope and colonoscope. INDICATIONS: 1. Anemia. 2. Abdominal pain. REASON FOR PROCEDURE: The procedure, risks, benefits, and possible consequences, including hemorrhage, aspiration, perforation and infection, and alternative treatments, were explained to the patient/legal guardian by Dr. Vasiliy John and the patient/legal guardian understood and accepted these risks. PROCEDURE IN DETAIL: After informed consent was obtained and the patient was adequately sedated, Olympus upper endoscope was advanced from mouth into the second portion of the duodenum and retroflexion was performed in the stomach. The patient had evidence of medium-sized hiatal hernia. In the stomach, there was diffuse gastritis. Random biopsy from antrum was obtained to rule out H. pylori infection. At this time, the upper endoscope was retrieved and the patient was turned over for colonoscopy. First, rectal exam was performed, which was positive for internal hemorrhoids. Then, the scope was advanced from the rectum into the cecum documented by appendiceal orifice, ileocecal valve, and right upper quadrant palpation. Quality of prep was good. The patient had evidence of significant diverticulosis in the left colon. No obvious mass or polyp was seen. No obvious source of bleeding. Retroflexion of rectum showed evidence of internal hemorrhoids. SUMMARY OF FINDINGS: 1. Hiatal hernia. 2. Gastritis, status post biopsy. 3. Internal hemorrhoids. 4. Diverticulosis. RECOMMENDATIONS: 1. Follow up biopsy results and treat accordingly. 2. We will resume diet. I want to thank, Dr. Rivera, for this kind referral. Vasiliy John M.D. DR: Yuridia JOB#: [id number] CC: Kenneth Rivera M.D.; Fax#: [phone]
--- NOTE | 2018-11-10 19:06 | NUR ---
HAND-OFF: Report given to Bri WREN.
--- NOTE | 2018-11-10 19:50 | NUR ---
NURSE NOTES: Received report from HOLGER Zavala. Patient in bed and awake, alert x 4 and responsive. Bed is in lowest position with two side rails up. Call light is within reach. Will continue to monitor.
[2018-11-10] MEDS ORDERED: Atorvastatin 20mg tab ORAL SCH (21:00)
[2018-11-11] VITALS: BP 145/63
[2018-11-11] MEDS: Piperacillin/Tazobactam 3.375 GM in NS 110 ML IVPB SCH ×2 (03:39→12:09)
[2018-11-11 04:00] VITALS: BP 165/77
--- NOTE | 2018-11-11 05:15 | Progress Note ---
DATE: 11/10/2018 CARDIOLOGY PROGRESS NOTE SUBJECTIVE: Still with abdominal pain. No chest pain. No shortness of breath. Gastrointestinal interventions today included panendoscopy and findings notable for hiatal hernia, gastritis, internal hemorrhoids, and diverticulosis with no active bleeding. OBJECTIVE: LUNGS: Clear. CARDIAC: Regular. Normal S1, S2. No murmur. ABDOMEN: Slightly distended, but soft. EXTREMITIES: With trace edema. IMPRESSION: 1. No signs of acute coronary insufficiency. 2. Abdominal pain is likely due to gastritis and hiatal hernia associated symptoms. 3. Internal hemorrhoids and diverticulosis noted as well with no active bleeding. PLAN: 1. Dietary recommendations. 2. Recheck laboratory studies. 3. No additional cardiovascular workup or medications presently planned. Az Campa M.D. DR: JANET JOB#: [id number] CC:
[2018-11-11 06:23] LABS: BASOPHILS % (AUTO) 0.9 % (0.0-2.0); EOSINOPHILS % (AUTO) 5.3 % (0.0-3.0); HEMATOCRIT 35.7 % (37.0-47.0); HEMOGLOBIN 11.6 G/DL (12.0-16.0); LYMPHOCYTES % (AUTO) 26.2 % (20.0-45.0); MEAN CORPUSCULAR VOLUME 78 FL (80-99); MONOCYTES % (AUTO) 8.3 % (1.0-10.0); NEUTROPHILS % (AUTO) 59.3 % (45.0-75.0); PLATELET COUNT 291 K/UL (150-450); RED BLOOD COUNT 4.58 M/UL (4.20-5.40); RED CELL DISTRIBUTION WIDTH 19.2 % (11.6-14.8); WHITE BLOOD COUNT 8.6 K/UL (4.8-10.8)
[2018-11-11 07:05] LABS: ANION GAP 11 mmol/L (5-15); BLOOD UREA NITROGEN 11 mg/dL (7-18); CALCIUM 8.8 MG/DL (8.5-10.1); CARBON DIOXIDE 26 MMOL/L (21-32); CHLORIDE 106 MMOL/L (98-107); SODIUM 142 MMOL/L (136-145)
--- NOTE | 2018-11-11 07:31 | NUR ---
HAND-OFF: Report given to HOLGER Silveira.
[2018-11-11 08:00] VITALS: BP 134/64
[2018-11-11] MEDS: HYDROcodone/Acetamin 5/325 tab ORAL PRN (08:10)
--- NOTE | 2018-11-11 08:13 | NUR ---
NURSE NOTES: Patient is alert and oriented. Patient is on room air. Patient reports abdominal pain 8/10. Pain medication given. Side rails are upx2, bed is locked, in lowest position, and call light is within reach. Will continue to monitor.
--- NOTE | 2018-11-11 08:17 | Pulmonology Progress Note ---
Assessment/Plan Assessment/Plan 1. Abdominal pain. 2. Hypertensive heart disease. 3. Chronic diastolic congestive heart failure. No signs of acute coronary insufficiency. 4. History of diverticulosis and possibility of diverticulitis. 5. Status post cholecystectomy. Cannot exclude acute hepatobiliary process. PLAN: 1. DC home 2. CAT scan of the abdomen reviewed 3. EGD and colonoscopy negative Kenneth Rivera M.D. Subjective Interval Events: Endoscopy negative; still mi;d albd discomfort Constitutional: Reports: no symptoms Respiratory: Reports: no symptoms Cardiovascular: Reports: no symptoms Genitourinary: Reports: no symptoms Neurologic: Reports: no symptoms Allergies: Coded Allergies: CODEINE (Unverified Allergy, Unknown, 07/22/15) MORPHINE (Unverified Allergy, Unknown, 07/22/15) Objective Last 24 Hour Vital Signs Date Time Temp Pulse Resp B/P (MAP) Pulse Ox O2 Delivery O2 Flow Rate FiO2 11/11/18 04:00 98.4 72 20 165/77 (106) 96 11/11/18 00:00 98.7 62 22 145/63 (90) 96 11/10/18 21:00 Room Air 11/10/18 20:28 67 151/64 11/10/18 20:00 97.7 67 20 151/64 (93) 97 11/10/18 16:00 98.7 80 18 153/87 (109) 97 11/10/18 12:55 62 23 153/70 98 Room Air 11/10/18 12:50 66 20 153/72 100 Nasal Cannula 3 11/10/18 12:50 62 16 100 11/10/18 12:47 97.6 62 16 153/70 100 Nasal Cannula 3 11/10/18 12:00 98.8 82 18 136/65 (88) 97 11/10/18 09:19 98.8 11/10/18 09:00 Room Air 11/10/18 09:00 78 133/68 Intake and Output 11/10/18 11/11/18 19:00 07:00 Intake Total 1180.0 ml 165.0 ml Output Total 0 ml Balance 1180.0 ml 165.0 ml Intake Oral 720 ml IV Total 460.0 ml 165.0 ml Estimated Blood Loss 0 ml # Voids 4 3 # Bowel Movements 2 1 General Appearance: no acute distress HEENT: normocephalic Respiratory/Chest: chest wall non-tender, lungs clear Cardiovascular: normal peripheral pulses, normal rate Abdomen: soft, non tender Microbiology Date/Time Source Procedure Growth Status 11/09/18 15:05 Stool Stool Culture - Preliminary NORMAL FECAL RICK. Resulted 11/09/18 15:05 Stool Clostridium difficile Toxin Assay - Final Complete Laboratory Tests 11/11/18 05:50: White Blood Count 8.6, Red Blood Count 4.58, Hemoglobin 11.6L, Hematocrit 35.7L , Mean Corpuscular Volume 78L, Mean Corpuscular Hemoglobin 25.3L, Mean Corpuscular Hemoglobin Concent 32.4, Red Cell Distribution Width 19.2H, Platelet Count 291, Mean Platelet Volume 6.4L, Neutrophils (%) (Auto) 59.3, Lymphocytes (%) (Auto) 26.2, Monocytes (%) (Auto) 8.3, Eosinophils (%) (Auto) 5.3H, Basophils (%) (Auto) 0.9, Sodium Level 142, Potassium Level 4.0, Chloride Level 106, Carbon Dioxide Level 26, Anion Gap 11, Blood Urea Nitrogen 11, Creatinine 1.0, Estimat Glomerular Filtration Rate , Glucose Level 134H, Calcium Level 8.8 Current Medications Medications (Trade) Dose Ordered Sig/Tiffani Route PRN Reason Start Time Stop Time Status Last Admin Dose Admin Acetaminophen (Tylenol) 650 mg Q6H PRN ORAL pain 11/10/18 01:30 12/09/18 01:29 Acetaminophen/ Hydrocodone Bitart (Palm 5/325) 1 tab Q3H PRN ORAL Mild Pain (Pain Scale 1-3) 11/10/18 02:00 11/16/18 16:57 11/11/18 08:10 Aripiprazole (Abilify) 10 mg DAILY ORAL 11/10/18 09:00 12/09/18 08:59 Aspirin (Ecotrin) 81 mg DAILY ORAL 11/10/18 09:00 12/09/18 08:59 Atorvastatin Calcium (Lipitor) 20 mg BEDTIME ORAL 11/10/18 21:00 12/08/18 20:59 11/10/18 20:28 Docusate Sodium (Colace) 100 mg THREE TIMES A DAY ORAL 11/10/18 09:00 12/09/18 08:59 Famotidine (Pepcid) 20 mg BID ORAL 11/10/18 09:00 12/09/18 17:59 11/10/18 18:03 Fluoxetine HCl (PROzac) 40 mg DAILY ORAL 11/10/18 09:00 12/09/18 08:59 Metoprolol Tartrate (Lopressor) 25 mg Q12HR ORAL 11/10/18 09:00 12/08/18 20:59 11/10/18 20:28 Piperacillin Sod/ Tazobactam Sod 3.375 gm/Sodium Chloride 110 ml @ 27.5 mls/hr Q8H IVPB 11/10/18 03:00 11/16/18 10:59 11/11/18 03:39 Sodium Chloride 1,000 ml @ 100 mls/hr Q10H IV 11/10/18 01:15 12/08/18 22:14 11/11/18 08:10 Kenneth Rivera MD Nov 11, 2018 08:17
[2018-11-11] MEDS: Docusate 100mg cap ORAL SCH ×2 (09:00→12:10)
--- NOTE | 2018-11-11 09:09 | NUR ---
INSURANCE PROGRESS NOTES FAXED TO [facility]: BEATRIZ P- [phone] F- [phone]
[2018-11-11] MEDS: Metoprolol 25mg tab ORAL SCH (09:21)
[2018-11-11] MEDS: Aspirin EC 81mg tab ORAL SCH (09:21)
[2018-11-11] MEDS: ARIPiprazole 10mg tab ORAL SCH (09:21)
[2018-11-11 12:00] VITALS: BP 159/60
--- NOTE | 2018-11-11 12:35 | GI Progress Note ---
Assessment/Plan Problems: (1) Nausea & vomiting ICD Codes: R11.2 - Nausea with vomiting, unspecified SNOMED: 58811632 (2) Abdominal pain ICD Codes: R10.9 - Unspecified abdominal pain SNOMED: 66399456 (3) Diverticulosis of colon ICD Codes: K57.30 - Diverticulosis of large intestine without perforation or abscess without bleeding SNOMED: 792325468 (4) Anemia ICD Codes: D64.9 - Anemia, unspecified SNOMED: 834328799 (5) Constipation ICD Codes: K59.00 - Constipation, unspecified SNOMED: 53426443 Status: stable Status Narrative Discussed with Dr. John. Assessment/Plan SUMMARY OF FINDINGS: 1. Hiatal hernia. 2. Gastritis, status post biopsy. 3. Internal hemorrhoids. 4. Diverticulosis. RECOMMENDATIONS: okay for DC per GI standpoint 1. Follow up biopsy results and treat accordingly. 2. We will resume diet. The patient was seen and examined at bedside and all new and available data was reviewed in the patients chart. I agree with the above findings, impression and plan. (Patient seen earlier today. Signature stamp does not reflect patient encounter time.). - Vasiliy John MD Subjective Gastrointestinal/Abdominal: Reports: no symptoms Objective Last 24 Hour Vital Signs Date Time Temp Pulse Resp B/P (MAP) Pulse Ox O2 Delivery O2 Flow Rate FiO2 11/11/18 09:21 66 134/64 11/11/18 08:00 Room Air 11/11/18 08:00 99.1 66 20 134/64 (87) 95 11/11/18 04:00 98.4 72 20 165/77 (106) 96 11/11/18 00:00 98.7 62 22 145/63 (90) 96 11/10/18 21:00 Room Air 11/10/18 20:28 67 151/64 11/10/18 20:00 97.7 67 20 151/64 (93) 97 11/10/18 16:00 98.7 80 18 153/87 (109) 97 11/10/18 12:55 62 23 153/70 98 Room Air 11/10/18 12:50 66 20 153/72 100 Nasal Cannula 3 11/10/18 12:50 62 16 100 11/10/18 12:47 97.6 62 16 153/70 100 Nasal Cannula 3 Intake and Output 11/10/18 11/11/18 19:00 07:00 Intake Total 1180.0 ml 165.0 ml Output Total 0 ml Balance 1180.0 ml 165.0 ml Intake Oral 720 ml IV Total 460.0 ml 165.0 ml Estimated Blood Loss 0 ml # Voids 4 3 # Bowel Movements 2 1 Laboratory Tests Test 11/11/18 05:50 White Blood Count 8.6 K/UL (4.8-10.8) Red Blood Count 4.58 M/UL (4.20-5.40) Hemoglobin 11.6 G/DL (12.0-16.0) L Hematocrit 35.7 % (37.0-47.0) L Mean Corpuscular Volume 78 FL (80-99) L Mean Corpuscular Hemoglobin 25.3 PG (27.0-31.0) L Mean Corpuscular Hemoglobin Concent 32.4 G/DL (32.0-36.0) Red Cell Distribution Width 19.2 % (11.6-14.8) H Platelet Count 291 K/UL (150-450) Mean Platelet Volume 6.4 FL (6.5-10.1) L Neutrophils (%) (Auto) 59.3 % (45.0-75.0) Lymphocytes (%) (Auto) 26.2 % (20.0-45.0) Monocytes (%) (Auto) 8.3 % (1.0-10.0) Eosinophils (%) (Auto) 5.3 % (0.0-3.0) H Basophils (%) (Auto) 0.9 % (0.0-2.0) Sodium Level 142 MMOL/L (136-145) Potassium Level 4.0 MMOL/L (3.5-5.1) Chloride Level 106 MMOL/L (98-107) Carbon Dioxide Level 26 MMOL/L (21-32) Anion Gap 11 mmol/L (5-15) Blood Urea Nitrogen 11 mg/dL (7-18) Creatinine 1.0 MG/DL (0.55-1.30) Estimat Glomerular Filtration Rate mL/min (>60) Glucose Level 134 MG/DL (74-106) H Calcium Level 8.8 MG/DL (8.5-10.1) Height (Feet): 5 Height (Inches): 5.00 Weight (Pounds): 142 General Appearance: WD/WN, no apparent distress, alert Cardiovascular: normal rate Respiratory/Chest: normal breath sounds, no respiratory distress Abdominal Exam: normal bowel sounds, non tender, soft Extremities: normal range of motion, non-tender Sunshine Araiza NP Nov 11, 2018 12:35
--- NOTE | 2018-11-11 18:12 | NUR ---
NURSE NOTES: Patient discharged Home via taxi. Taxi voucher given to patient. Belongings reviewed and accounted for. IV removed. ID bracelet removed. Discharge instructions given to patient. Patient stable upon discharge.
--- NOTE | 2018-11-12 01:30 | Progress Note ---
DATE: 11/11/2018 SUBJECTIVE: The patient is tolerating diet. No vomiting. Abdominal pain is controlled. She has no chest pain. OBJECTIVE: VITAL SIGNS: Blood pressure 134/64 to 165/77, heart rate 72, respiratory rate 20, and afebrile. LUNGS: Clear. CARDIAC: Regular. ABDOMEN: Mildly tender, but no guarding or rebound. EXTREMITIES: No edema. LABORATORY DATA: White count 8.6 and hemoglobin 11.6. Chemistry panel within normal limits. IMPRESSION: 1. No evidence of acute cardiopulmonary process. 2. Abdominal pain. 3. No signs of active infection with resolved leukocytosis on empiric therapy. 4. Possibly recovering diverticulitis. PLAN: 1. No additional cardiovascular recommendations. 2. Discharge plan per primary care physician. 3. Antibiotics per primary care physician. Az Campa M.D. DR: JANET JOB#: [id number] CC:
--- NOTE | 2018-11-12 20:16 | Discharge Summary ---
Discharge Summary Discharge Summary _ DATE OF ADMISSION: 11/08/2018 DATE OF DISCHARGE: 11/11/2018 DISCHARGED BY: Dr. Rivera REASON FOR ADMISSION: 77 years old Female with past medical history of coronary artery disease, myocardial infarction, hypertension, type 2 diabetes mellitus, gastritis, diverticulosis, status post cholecystectomy, hiatal hernia, depression, psychosis, degenerative disc disease with lumbosacral spondylosis, atherosclerosis, presented to emergency department complaining of chest pain along with mild epigastric pain with nausea, no vomiting. Patient also reported not having bowel movement for several days. Upon evaluation laboratory work-up revealed leukocytosis WBC 16.5, stable hemoglobin and hematocrit. Stable electrolytes and renal parameters. Troponin negative, pro-BNP 1310. EKG revealed sinus rhythm, no acute ischemic changes. Lactic acid 1.3. Chest x-ray demonstrated no acute findings. CT scan of the abdomen and pelvis revealed no acute abnormality. Colonic diverticulosis. No evidence of diverticulitis. Patient was admitted for further management CONSULTANTS: set up mechanic automatic line Dr. Campa GI specialist Dr. John [facility] COURSE: Patient admitted to medical surgical floor. Patient started on the IV fluids and empiric antibiotics. Antiemetic provided as needed. GI specialist and cardiology closely followed. Serial troponin x3 were negative. EKG revealed no acute ischemic changes. Patient was ruled out for acute MT.. Echocardiogram revealed preserved ejection fraction 55 to 60%. No evidence of left ventricular hypertrophy. No evidence of wall motion abnormality. Blood pressure was managed with beta-aneta and remained stable. Aspirin and statin continued. Per set up mechanic automatic line, no evidence of acute cardiopulmonary process/acute coronary insufficiency at this time. No additional cardiovascular work-up was required. Pain management was addressed. Bowel regimen instituted. GI prophylaxis provided Symptomatic care provided. Stool for occult blood was negative. Hemoglobin and hematocrit were closely monitored to keep hemoglobin above 7. Hemoglobin and hematocrit remained at baseline. Prior to discharge hemoglobin 11.6, hematocrit 35.7. Patient subsequently undergone upper endoscopy with biopsy and colonoscopy, which revealed hiatal hernia, gastritis status post biopsy, internal hemorrhoids , diverticulosis. Biopsy of stomach antrum showed mild chronic gastritis, but was negative for Helicobacter infection and negative for intestinal metaplasia, dysplasia or malignancy. Diet was advanced as tolerated. Patient was able to tolerate diet. Abdominal pain resolved. No signs of active infection with resolved leukocytosis on empiric antibiotic therapy. Stool culture was negative, stool for C. difficile was negative. Blood sugar remained stable. Patient clinically stabilized and was ready for discharge home. FINAL DIAGNOSES: Abdominal pain, possibly due to gastritis-resolved Status post upper endoscopy with biopsy and colonoscopy Gastritis, status post biopsy Hiatal hernia Internal hemorrhoids Diverticulosis Leukocytosis, resolved Hypertensive heart disease Chronic diastolic congestive heart failure Anemia Constipation Diabetes mellitus type 2 DISCHARGE MEDICATIONS: See Medication Reconciliation list. DISCHARGE INSTRUCTIONS: Patient was discharged home . Follow up with primary care provider in one week. I have been assigned to dictate discharge summary for this account. I was not involved in the patient's management. Nahomy Sepulveda NP Nov 12, 2018 20:16
--- NOTE | 2018-11-14 09:49 | Cardiology Report ---
APPROVED REPORT EXAM: Two-dimensional and M-mode echocardiogram with Doppler and color Doppler. INDICATION ANGINA PECTORIS M-Mode DIMENSIONS IVSd1.3 (0.7-1.1cm)Left Atrium (MM)4.8 (1.6-4.0cm) LVDd4.8 (3.5-5.6cm)Aortic Root2.8 (2.0-3.7cm) PWd1.2 (0.7-1.1cm)Aortic Cusp Exc.1.8 (1.5-2.0cm) IVSs1.3 cm LVDs3.3 (2.5-4.0cm) PWs1.4 cm Normal left ventricular chamber size, systolic function and wall motion . Left ventricular ejection fraction estimated to be 55-60%. No evidence of left ventricular hypertrophy. No evidence of pericardial effusion . All other cardiac chamber sizes are within normal limits. Aortic valve calcification with normal cusp excursion . Mildly thickened mitral valve leaflets with normal excursion. Mild mitral annulus and aortic root calcification. Pulmonic valve not well visualized. IVC at normal size with physiologic collapse. A color flow and spectral Doppler study was performed and revealed: No aortic insufficiency . Mitral diastolic velocities suggest reduced left ventricular relaxation c/w mild LV diastolic dysfunction (Grade I ) Trace mitral regurgitation. Trace tricuspid regurgitation. Tricuspid systolic velocities suggests peak right ventricular systolic pressure of mmHg.
--- NOTE | 2018-11-14 14:59 | NUR ---
INSURANCE DISCHARGE SUMMARY HAS BEEN FAXED TO: NCM: BEATRIZ P- [phone] F- [phone]
== END 2018-11-11 18:11 | disposition home or self-care (01) | DRG 392 ==
LOC: EDBD 15:48 → EMR 17:24 → 2E 17:40 → EDBEDREQ 18:10 → 2E 19:42 → OBSVTOIN 19:59 → 4E 11-10 01:44
PROC: 0DJD8ZZ Inspection of Lower Intestinal Tract, Via Natural or Artificial Opening Endoscopic (ICD-10-PCS; principal; 2018-11-10 12:19)
PROC: 0DB78ZX Excision of Stomach, Pylorus, Via Natural or Artificial Opening Endoscopic, Diagnostic (ICD-10-PCS; principal; 2018-11-10 12:19)
DX: K29.70 Gastritis, unspecified, without bleeding (principal); I50.32 Chronic diastolic (congestive) heart failure; K57.30 Diverticulosis of large intestine without perforation or abscess without bleeding; I11.0 Hypertensive heart disease with heart failure; K44.9 Diaphragmatic hernia without obstruction or gangrene; K64.8 Other hemorrhoids; R10.9 Unspecified abdominal pain; D64.9 Anemia, unspecified; K59.00 Constipation, unspecified; R11.2 Nausea with vomiting, unspecified; E11.9 Type 2 diabetes mellitus without complications; Z88.6 Allergy status to analgesic agent; Z90.49 Acquired absence of other specified parts of digestive tract; I25.2 Old myocardial infarction; I25.10 Atherosclerotic heart disease of native coronary artery without angina pectoris
CPT/HCPCS: 36415; 71045; 74176; 80048; 80053; 80307; 81003; 82270; 82550; 82553; 82962; 83605; 83690; 83735; 83880; 84100; 84484; 85025; 85610; 85730; 87045; 87324; 93005; 93306; 94003; 94150; 96374; 96375; 99285; J2405